=== PATIENT | male | born 1965 | race Two or more races ===

== ENCOUNTER 2016-07-24 10:27 | Emergency (ER) | payer OTHER ==
[2016-07-24 11:15] LABS: ABSOLUTE NEUTROPHIL COUNT 3.5 K/mm3 (1.8-7.7); BASO % 0.7 % (0.2-1.0); EOS # 0.3 (0.0-0.5); EOS % 5.3 % (0.9-2.9); HEMATOCRIT 39.7 % (32.0-52.0); HEMOGLOBIN 13.2 gm/l (14.0-18.0); IMM NEUT% 0.5 % (0-1); LYMPH # 1.6 (1.0-4.8); MEAN CORPUSCULAR HEMOGLOBIN 28.3 pg (27.0-31.0); MEAN CORPUSCULAR HGB CONC 33.2 g/dl (33.0-37.0); MEAN PLATELET VOLUME 11.3 fl (7.4-10.4); MONO # 0.5 (0.0-0.8); MONO % 8.8 % (4-12); NEUT % 58.7 % (43-75); PLATELET COUNT 192 K/mm3 (130-400); RED CELL DISTRIBUTION WIDTH 14.1 % (11.5-14.5)
[2016-07-24 11:16] LABS: SPECIFIC GRAVITY 1.015 (1.001-1.030); URINE BILIRUBIN NEGATIVE (NEGATIVE); URINE BLOOD NEGATIVE (NEGATIVE); URINE GLUCOSE (UA) 3+ (NEGATIVE); URINE LEUKOCYTE ESTERASE NEGATIVE (NEGATIVE); URINE NITRITE NEGATIVE (NEGATIVE); URINE PROTEIN NEGATIVE (NEGATIVE); URINE UROBILINOGEN NORMAL (0-1 mg/dl)
[2016-07-24 11:17] LABS: URINE APPEARANCE CLEAR; URINE COLOR YELLOW
[2016-07-24] MEDS ORDERED: INSULIN REGULAR HUMAN (DOSE) 100 UNITS/1 ML ONE (11:24)
[2016-07-24 11:54] LABS: ALBUMIN 3.4 gm/dL (3.5-5.7); CALCIUM 8.6 mg/dL (8.6-10.3)
== END 2016-07-24 12:56 ==
LOC: ED 10:27
DX: E11.65 Type 2 diabetes mellitus with hyperglycemia (principal); Z79.4 Long term (current) use of insulin; Z79.84 Long term (current) use of oral hypoglycemic drugs; J45.909 Unspecified asthma, uncomplicated; F17.210 Nicotine dependence, cigarettes, uncomplicated
CPT/HCPCS: 85025; 80053; 81003; 99283 ×2; 82962; J1815